=== PATIENT | male | born 1965 | race Caucasian/White ===

== ENCOUNTER 2021-01-10 17:01 | Inpatient (IN) | payer OTHER ==
[~2021-01-10] VITALS: Ht 175.3 cm; Wt 113.4 kg
[~2021-01-10 17:01] MED LIST: ASPIRIN 325MG325 MG PO; GLUCOPHAGE1000 MG PO; LIPITOR TAB 2020 MG PO; LISINOPRIL40 MG PO; LOPRESSOR 25 MG25 MG PO; PRINIVIL20 MG PO
[2021-01-10 18:02] LABS: HEMOGLOBIN 15.2 gm/dl (14.0-17.5); RED BLOOD COUNT 5.25 M/UL (4.20-5.50); WHITE BLOOD COUNT 10.9 K/UL (4.5-11.0)
[2021-01-10 18:34] LABS: BUN/CREATININE RATIO 14 (0-10)
[2021-01-11 06:12] LABS: HEMOGLOBIN 14.1 gm/dl (14.0-17.5); RED BLOOD COUNT 4.92 M/UL (4.20-5.50); WHITE BLOOD COUNT 10.9 K/UL (4.5-11.0)
[2021-01-11 06:56] LABS: BUN/CREATININE RATIO 14 (0-10)
[2021-01-12 03:20] LABS: HEMOGLOBIN 14.4 gm/dl (14.0-17.5); WHITE BLOOD COUNT 10.4 K/UL (4.5-11.0)
[2021-01-12 03:37] LABS: BUN/CREATININE RATIO 16 (0-10)
--- NOTE | 2021-01-12 16:51 | NUR ---
3 assist needed for transfer from chair to bed. patient combative and verbally abuse at that time. after patient back in bed patient resting comfortably.
--- NOTE | 2021-01-12 18:24 | NUR ---
reported to dr. sim patient increse b/p. new order received
[2021-01-13 04:14] LABS: HEMOGLOBIN 15.3 gm/dl (14.0-17.5); RED BLOOD COUNT 5.34 M/UL (4.20-5.50); WHITE BLOOD COUNT 10.9 K/UL (4.5-11.0)
[2021-01-13 04:33] LABS: BUN/CREATININE RATIO 22 (0-10)
[2021-01-13] MEDS ORDERED: LISINOPRIL10 MG PO (16:07)
[2021-01-13] MEDS ORDERED: CARVEDILOL3.125 MG PO (16:07)
[2021-01-13] MEDS ORDERED: FUROSEMIDE20 MG PO (16:07)
[2021-01-13] MEDS ORDERED: LANTUS INS100 UTS/M1 SQ (16:07)
[2021-01-13] MEDS ORDERED: ATORVASTATIN CA20 MG PO (16:07)
[2021-01-13] MEDS ORDERED: GLUTOSE 1537.5 GM PO (16:07)
[2021-01-13] MEDS ORDERED: AMOX TR-K CLV1 EAC4 PO (16:07)
[2021-01-13] MEDS ORDERED: NITROGLYCERIN0.4 MG SL (16:07)
[2021-01-13] MEDS ORDERED: ASPIRIN EC81 MG PO (16:07)
[2021-01-13] MEDS ORDERED: AMLODIPINE BESYL5 MG PO (16:07)
[2021-01-13] MEDS ORDERED: GLUCAGEN1 MG/1 ML IM (16:07)
== END 2021-01-13 19:13 | disposition home or self-care (01) | DRG 286 ==
LOC: ER1 17:01 → M/S 19:30 → CDU 19:30 → M/S 19:30
PROVIDERS: Emergency Medicine; Internal Medicine; Physician Assistant Medical; ADMIT Internal Medicine
PROC: B24BZZZ Ultrasonography of Heart with Aorta (ICD-10-PCS; 2021-01-11)
PROC: 4A023N7 Measurement of Cardiac Sampling and Pressure, Left Heart, Percutaneous Approach (ICD-10-PCS; principal; 2021-01-13)
PROC: B2111ZZ Fluoroscopy of Multiple Coronary Arteries using Low Osmolar Contrast (ICD-10-PCS; 2021-01-13)
PROC: B2151ZZ Fluoroscopy of Left Heart using Low Osmolar Contrast (ICD-10-PCS; 2021-01-13)
PROC: 4A033BC Measurement of Arterial Pressure, Coronary, Percutaneous Approach (ICD-10-PCS; 2021-01-13)
DX: I42.0 Dilated cardiomyopathy (principal); I50.43 Acute on chronic combined systolic (congestive) and diastolic (congestive) heart failure; I11.0 Hypertensive heart disease with heart failure; Z20.822 Contact with and (suspected) exposure to COVID-19; E11.9 Type 2 diabetes mellitus without complications; I27.20 Pulmonary hypertension, unspecified; R06.02 Shortness of breath; E66.9 Obesity, unspecified; R77.8 Other specified abnormalities of plasma proteins; K04.7 Periapical abscess without sinus; I08.1 Rheumatic disorders of both mitral and tricuspid valves; Z90.01 Acquired absence of eye; Z85.820 Personal history of malignant melanoma of skin; Z91.19 Patient's noncompliance with other medical treatment and regimen; Z68.36 Body mass index [BMI] 36.0-36.9, adult; Z82.49 Family history of ischemic heart disease and other diseases of the circulatory system; Z90.49 Acquired absence of other specified parts of digestive tract
CPT/HCPCS: ECHO; 36415; 71045; 78452; 80048; 80053; 80061; 82550; 82553; 82962; 83036; 83735; 83874; 83880; 84484; 85025; 85027; 85379; 85610; 85730; 93005; 93017; 93306; 94640; 94664; 96372; 96374; 99152; 99285; A9502; C1769; G0378; J1644; J1650; J1940; J2250; J2370; J2785; J3010; J7030; J7040; Q9967; U0002

== ENCOUNTER → 2021-04-16 | Outpatient (CLI) | payer OTHER ==
[~2021-04-16] MED LIST changes: +AMLODIPINE BESYL5 MG PO; +AMOX TR-K CLV1 EAC4 PO; +ASPIRIN EC81 MG PO; +ATORVASTATIN CA20 MG PO; +CARVEDILOL3.125 MG PO; +FUROSEMIDE20 MG PO; +GLUCAGEN1 MG/1 ML IM; +GLUTOSE 1537.5 GM PO; +LANTUS INS100 UTS/M1 SQ; +LISINOPRIL10 MG PO; +NITROGLYCERIN0.4 MG SL
== END ==
LOC: HEART 5 03-19 13:00 → ECHO 10:00
DX: I42.9 Cardiomyopathy, unspecified (principal); I34.0 Nonrheumatic mitral (valve) insufficiency; I51.7 Cardiomegaly
CPT/HCPCS: ECHO; 93306